=== PATIENT | female | born 1955 | race Caucasian/White ===

== ENCOUNTER → 2020-10-09 09:47 | Outpatient (BNVA) | payer SELFPAY | PROVIDERS: Visit Provider Nurse Practitioner Family | DX: R10.9 Unspecified abdominal pain (principal); R53.1 Weakness; N39.0 Urinary tract infection, site not specified; R31.9 Hematuria, unspecified; R10.31 Right lower quadrant pain; E86.0 Dehydration | CPT/HCPCS: 81000; 85018 ==